=== PATIENT | male | born 1975 | race Caucasian/White ===

== ENCOUNTER 2025-05-21 19:12 | Emergency (ER) | payer OTHER ==
[~2025-05-21] VITALS: Ht 182.9 cm; Wt 99.8 kg
[2025-05-21] MEDS ORDERED: CARB15DR12 EACH EAR (19:55)
[2025-05-21 20:00] VITALS: BP 114/69; TEMP 98.1; O2SAT 97
== END 2025-05-21 20:00 | disposition home or self-care (01) ==
LOC: ER 19:20
DX: H61.23 Impacted cerumen, bilateral (principal); Z60.2 Problems related to living alone